=== PATIENT | male | born 1955 | race Hispanic/Latino ===

== ENCOUNTER 2018-11-13 22:07 | Observation (INO) | payer OTHER ==
--- NOTE | 2018-11-13 22:35 | RAD ---
Exam: Chest one view HISTORY:Chest pain Comparison: 02/28/2014 FINDINGS: Cardiac silhouette: Normal Pulmonary vessels: Normal Costophrenic angles: Clear LUNGS: No masses or consolidation. Pneumothorax: None Osseous abnormalities: None IMPRESSION: No acute cardiopulmonary process.
[2018-11-13 22:40] LABS: Hemoglobin 10.2 g/dL (14.0-18.0); Mean Corpuscular HGB CONC 30.2 g/dL (32.0-36.0); Mean Corpuscular Hemoglobin 22.4 pg (27.0-31.0); Mean Corpuscular Volume 74.3 fL (78.0-98.0); Mean Platelet Volume 8.8 fL (7.4-10.4); Platelet Count 381 thou/uL (130-400); RBC Distribution Width 16.8 % (11.5-14.5); Red Blood Cell (RBC) Count 4.52 mill/uL (4.70-6.10)
[2018-11-13] MEDS ORDERED: Aspirin Chewable 81 MG TAB ONE (22:43)
[2018-11-13] MEDS ORDERED: Nitroglycerin 0.4 MG TAB 1 EACH ONE (22:43)
[2018-11-13 22:55] LABS: ALT (SGPT) 21 U/L (8-55); AST (SGOT) 20 U/L (5-34); Albumin 3.8 g/dL (3.4-4.8); Alkaline Phosphatase 96 U/L (40-150); Anion Gap 13 mmol/L (10-20); BUN (Urea Nitrogen) 12 mg/dL (8.4-25.7); Bilirubin, Total 0.3 mg/dL (0.2-1.2); CK (CPK) 148 U/L (30-200); Calc. Creatinine Clearance 0 mL/min (70-130); Calcium 8.7 mg/dL (7.8-10.44); Carbon Dioxide 23 mmol/L (23-31); Chloride 108 mmol/L (98-107); Estimated GFR-MDRD 75; Globulin 3.2 g/dL (2.4-3.5); Glucose 132 mg/dL (80-115); Lipase 48 U/L (8-78); Potassium 3.6 mmol/L (3.5-5.1); Sodium 140 mmol/L (136-145)
[2018-11-13 23:11] LABS: #Basophils 0.1 thou/uL (0.0-0.2); #Eosinphils 0.2 thou/uL (0.0-0.7); #Lymphocytes 2.8 thou/uL (1.20-3.40); #Monocytes 0.8 thou/uL (0.11-0.59); #Neutrophils 5.1 thou/uL (1.40-6.50); %Eosinophils 2.6 % (0.0-10.0); %Lymphocytes 31.1 % (21.0-51.0); %Monocytes 9.1 % (0.0-10.0); %Neutrophils 56.2 % (42.0-75.0); Hypochromia SLIGHT = 6-15 cells (100X) (0-5/hpf); MDiff Complete? YES; Microcytosis SLIGHT = 6-15 cells (100X) (0-5/hpf)
[2018-11-14 00:49] LABS: Troponin I Less than 0.010 ng/mL (< 0.028)
[2018-11-14] MEDS ORDERED: Acetaminophen 325 MG TAB PO PRN (01:18)
[2018-11-14] MEDS ORDERED: Ondansetron ODT 4 MG TAB SL PRN (01:18)
[2018-11-14] MEDS ORDERED: Ondansetron PF 4 MG/2 ML Vial IVP PRN (01:18)
[2018-11-14 01:48] VITALS: BMI 36.1
[2018-11-14 03:48] LABS: Troponin I Less than 0.010 ng/mL (< 0.028)
[2018-11-14] MEDS ORDERED: Nitroglycerin 2% Ointment 1 INCH/1 GM Packet TOP SCH (06:00)
[2018-11-14] MEDS ORDERED: traMADol HCl 50 MG TAB PO PRN (08:51)
[2018-11-14] MEDS ORDERED: Aspirin 81 mg Enteric Coated Tablet PO SCH (09:00)
[2018-11-14 09:19] LABS: Iron 19 ug/dL (65-175); Iron Binding Capacity, Total 414 mcg/dL (261-462)
[2018-11-14] MEDS ORDERED: ADENOSINE 60 MG/20 ML VIAL ONE (10:25)
[2018-11-14] MEDS ORDERED: Iron, Sodium Ferric Gluconate 250 MG in Sodium Chloride 0.9% 100 ML IVPB SCH (11:45)
[2018-11-14] MEDS ORDERED: IRON SUCROSE COMPLEX 100 MG/5 ML SLOW IVP SCH (11:45)
--- NOTE | 2018-11-14 12:34 | NM ---
Nuclear medicine Cardiac myocardial perfusion SPECT Ejection fraction study Wall motion cine: DATE:11/14/2018 8:51 AM TECHNIQUE: Number of days:2 Rest study: Technetium 99m-sestamibi (Cardiolite) dose:10.2 mCi Stress study: Technetium 99m-sestamibi (Cardiolite) dose:32 mCi INDICATION: Chest pain FINDINGS: Cardiac (myocardial perfusion) SPECT There are no reversible myocardial perfusion defects. Ejection fraction study Left ventricular EF = 72% Wall motion cine There was normal wall motion and thickening IMPRESSION: No evidence of reversible myocardial ischemia.
[2018-11-14 12:43] VITALS: BP 131/60; TEMP 97.6
[2018-11-14 13:18] LABS: Folate (Folic Acid) 10.2 ng/mL (7.0-31.4)
--- NOTE | 2018-11-16 07:11 | SS ---
DATE OF ADMISSION: 11/13/2018 DATE OF DISCHARGE: 11/14/2018 CONDITION: At the time of discharge, stable and improved. DISCHARGE DISPOSITION: Home. PRIMARY CARE PHYSICIAN: Dr. Nieves. DISCHARGE DIAGNOSES: 1. Chest pain noncardiac, likely due to anemia as well as uncontrolled hypertension. 2. Acute coronary syndrome, ruled out. 3. Uncontrolled hypertension. 4. Iron-deficiency anemia. 5. BPH. DISCHARGE MEDICATIONS: Resume home medications as follows: 1. Fish oil daily. 2. Flomax 0.4 mg daily. 3. Hydralazine 50 mg p.o. t.i.d. 4. Amlodipine 10 mg daily. 5. Protonix 40 mg daily. 6. Atenolol 50 mg daily. HISTORY OF PRESENTING ILLNESS: Mr. Ferrer is a pleasant 63-year-old male with known history of BPH and chronic iron deficiency anemia and uncontrolled hypertension with noncompliance, who presented to the emergency room with complaints of chest pain, which was rather constant on the left side of the chest radiating to the back for 3 weeks with shortness of breath. He described it as a pressure-like feeling and it hurts more to take deep breaths. He has blood pressure medications at home, but often forgets to take him. His daughter reported that his blood pressure has been running in the 180s at home. He denies any recent illnesses, fever, or chills. Denies any excessive swelling of the legs. He does feel tired with exertion. He rated his chest pain as 4/10 in intensity upon presentation. He cannot tell any relieving factors. No nausea, vomiting, abdominal pain, dysuria, frequency, urgency, hematochezia, or melena. Upon presentation to the ER, his blood pressure was 159/76 with a pulse of 74, saturating 99% on room air, and temperature 98.5. His initial workup in the emergency room revealed a hemoglobin of 10.2, which is on and off his baseline, but his hemoglobin was 13.1 on 06/25/2018. He did not give any history of hematochezia, melena, or hematemesis. His D-dimer was within normal limit and his serum chemistries were unremarkable. Cardiac enzymes and 12-lead EKG were also unremarkable without any evidence of ACS. Chest x-ray was unremarkable as well. He was admitted to Medicine Team for ACS rule out. He never has had any cardiac workup done per se. PAST MEDICAL HISTORY: 1. Chronic iron deficiency anemia, likely nutritional. 2. Hypertension with noncompliance. 3. BPH. PAST SURGICAL HISTORY: EGD and colonoscopy. ALLERGIES: LISINOPRIL AND LOSARTAN ARE LISTED AN ALLERGY. FAMILY HISTORY: Mother had diabetes. SOCIAL HISTORY: He has no history of drug, tobacco, or alcohol abuse. HOME MEDICATIONS: As above dictated in the discharge medications, reviewed with the patient and his daughter. CODE STATUS: Full code discussed with the patient at the time of admission. REVIEW OF SYSTEMS: A 14-point review of system is done, it is negative except for those mentioned in the history and physical. LABORATORY STUDIES: CBC shows WBCs 9.0, hemoglobin 10.2, which is microcytic in nature. Platelet normal. D-dimer less than 0.27. Serum chemistries unremarkable. Blood sugar 132. Troponin less than 0.010 x3 with normal CK at 148. Liver enzymes unremarkable. Chest x-ray by my review has no evidence to suggest any pleural effusion, edema, or infiltrate. A 12-lead EKG by my review shows normal sinus rhythm at 72 beats per minute without any acute ST or T-wave changes. PHYSICAL EXAMINATION: VITAL SIGNS: This morning; temperature 98.1, pulse of 65, respirations 20, saturating 97% on room air, and blood pressure 129/61. GENERAL: No acute distress. Awake, alert, and oriented x3. HEENT: Mucous membrane is moist and pink. No oropharyngeal exudate or erythema. Head is normocephalic and atraumatic. Pupils are equal and reactive to light and accommodation. Extraocular movement intact. NECK: Supple without any lymphadenopathy, JVD, or bruit. CHEST: Clear to auscultation without any wheezing, rales, or rhonchi. Rate rhythm is regular without any murmurs, rubs, or gallops. ABDOMEN: Soft, nontender, and nondistended with positive bowel sounds. EXTREMITIES: Free of any cyanosis, clubbing, or edema. NEUROLOGIC: Nonfocal. SKIN: Free of any rashes or bruises. Feels warm and dry to touch. PSYCHIATRIC: Normal affect. IMPRESSION AND PLAN: 1. Chest pain. This is likely secondary to uncontrolled hypertension. The patient's pain is resolved with better control of his blood pressure. He was given a stress test in the hospital, which is negative for any reversible ischemia or infarction. His ejection fraction is estimated at 72%. His iron levels were checked and his iron levels were low at 19. His B12 folic acid levels were normal. We will supplement his iron by IV iron sucrose and he is restarted on his blood pressure medications. At this time, he is back to his baseline and acute coronary syndrome has been ruled out. I have discussed this extensively with the patient and his family the need to continue his antihypertensives as prescribed and to keep a blood pressure log and follow up with primary care physician with regard to adjustment of the medications if needed. He verbalized understanding. 2. Hypertension, much better controlled now. Resume hydralazine 50 t.i.d., amlodipine 10 daily, and atenolol 50 mg daily. 3. BPH. Resume Flomax 0.4 mg daily. DISPOSITION: Mr. Ferrer was admitted earlier today for ACS rule out, which has been ruled out by a negative stress test, negative EKG, and serial cardiac enzymes within normal limits. He will be discharged home with close followup with PCP. DISCHARGE PLAN: Discharge plan was discussed with the patient and his family and they verbalized understanding. Job ID: [id number]
--- NOTE | 2018-11-17 14:16 | STRESS ---
Acquisition Time: 2018-11-14 10:22:35 Total Exercise Time: 00:04:00 Test Indications: CHEST PAIN Medications: Protocol: ADENOSINE Max HR: 073 BPM 46% of Pred: 156 BPM Max BP: 136/068 mmHG Max Work Load: 1.0 METS RESTING ECG: SINUS BRADYCARDIA SYMPTOMS: NAUSEA NORMAL BP RESPONSE ECTOPY: NONE ECG STRESS: NO SIGNFICANT CHANGES INTERPRETATION: AWAIT NUCLEAR IMAGES FOR DEFINITIVE DIAGNOSIS Confirmed by NADIA MERCER ([id number]), subeditor SURESH ARIZMENDI ([id number]) on 11/17/2018 2:15:57 PM Referred By: MD Carl RAMIREZ Confirmed By:NADIA MERCER
--- NOTE | 2018-11-21 14:57 | EKG ---
Test Reason : Blood Pressure : / mmHG Vent. Rate : 072 BPM Atrial Rate : 072 BPM P-R Int : 196 ms QRS Dur : 080 ms QT Int : 406 ms P-R-T Axes : 054 -06 040 degrees QTc Int : 444 ms Normal sinus rhythm Normal ECG Confirmed by BRADY DIOR MD ([id number]), editor map PRECIOUS JULIAN ([id number]) on 11/21/2018 2:57:21 PM Referred By: Confirmed By:BRADY DIOR MD
== END 2018-11-14 15:29 | disposition home or self-care (01) ==
LOC: ERS 22:07 → 2SW 23:30 → ERS 11-14 01:00
PROVIDERS: ADMIT Hospitalist; ATTEND Hospitalist
DX: R07.89 Other chest pain (principal); I10 Essential (primary) hypertension; D50.9 Iron deficiency anemia, unspecified; N40.0 Benign prostatic hyperplasia without lower urinary tract symptoms; Z79.899 Other long term (current) drug therapy; Z88.8 Allergy status to other drugs, medicaments and biological substances; Z91.19 Patient's noncompliance with other medical treatment and regimen
CPT/HCPCS: 36415; 71045; 78452; 80053; 82550; 82607; 82746; 83540; 83550; 83690; 84484; 85025; 85379; 93005; 93017; 94760; 96365; A9500; G0378; J0153; J2916; J3490